=== PATIENT | female | born 1985 | race African-American/Black ===

== ENCOUNTER 2023-03-21 01:29 | Emergency (ER) | payer MEDICAID, OTHER ==
[~2023-03-21] VITALS: Ht 165.1 cm; Wt 112.0 kg
[~2023-03-21 01:29] MED LIST: CEPH-568; SULF1TAB47
[2023-03-21 01:53] VITALS: BP 155/84; RESP 14; TEMP 98.6; O2SAT 100
[2023-03-21 01:54] VITALS: PULSE 61
== END 2023-03-21 03:00 | disposition left against medical advice (07) ==
LOC: ER 01:29
DX: R10.9 Unspecified abdominal pain (principal); Z53.21 Procedure and treatment not carried out due to patient leaving prior to being seen by health care provider
CPT/HCPCS: 99281